=== PATIENT | female | born 1980 | race Caucasian/White ===

== ENCOUNTER 2022-07-19 14:15 | Emergency (ER) | payer MEDICAID, SELFPAY ==
[2022-07-19 14:21] VITALS: BP 119/80; PULSE 90; RESP 16; TEMP 36.6; O2SAT 97
[2022-07-19 15:23] VITALS: BP 106/72; PULSE 103; RESP 17; TEMP 36.6; O2SAT 95
[2022-07-19 16:07] VITALS: BP 112/73; PULSE 84; O2SAT 99
--- NOTE | 2022-07-19 16:13 | W.ED.GENADLT ---
HPI - General Adult General: Chief complaint: General Medical Stated complaint: addiction Time Seen by Provider: 07/19/22 16:13 History of Present Illness: This 41-year-old female with a history of fentanyl abuse, presents to the ER wanting to be admitted for 3 days for medical detox from fentanyl. Her last use was about 12 hours ago. She reports feeling hot and cold, having abdominal cramps in shivering. However, clinically, she looks calm and has normal heart rate, normal blood pressure and normal temperature. No tremors were observed and she is not diaphoretic. She had gone to [facility] and was told about a 12 to 24-hour wait. So she decided to come to our facility. Review of Systems General: Reports: 10 or more systems reviewed and unremarkable except in HPI and below Neuro: Reports: other (Tremors) Endo: Reports: other (Feeling hot and cold) Physical Exam Const: COMMON NORMALS: no acute distress, patient oriented x3, no limitations and alert HENMT: COMMON NORMALS: normocephalic HEAD & SCALP: normocephalic Neck/C-Spine: COMMON NORMALS: full ROM and supple Chest: COMMONS NORMALS: normal inspection of the chest Resp: COMMON NORMALS: normal respiratory effort, No retractions, No use of accessory muscles and clear to auscultation bilaterally AUSCULTATION: clear to auscultation bilaterally Cardio: COMMON NORMALS: regular rate, regular rhythm and No murmurs present (Cardio) RATE: regular rate RHYTHM: regular rhythm GI: COMMON NORMALS: Normal to inspection, nondistended, normoactive bowel sounds present and non-tender : COMMON NORMALS: Yes no CVA tenderness BLADDER/KIDNEY EXAM: Yes no CVA tenderness Back/Pelvis: COMMON NORMALS: no CVA tenderness and no thoracic nor lumbar tenderness Extremity: GENERAL: Yes normal exam except as noted Neuro: COMMON NORMALS: patient oriented x3 and no focal motor deficits SENSORIUM/ORIENTATION: Yes alert Psych: COMMON NORMALS: mental status grossly normal and cooperative Course Vital Signs: Vital signs: Vital Signs Temperature 97.8 F 07/19/22 15:23 Pulse Rate 96 07/19/22 17:19 Respiratory Rate 17 07/19/22 15:23 Blood Pressure 105/82 07/19/22 17:19 Pulse Oximetry 97 07/19/22 17:19 Oxygen Delivery Me thod 07/19/22 16:57 MDM - General Adult Medical Decision Making Medical decision making: History as above. Patient primarily came to the ER so that she will be admitted for 3 days prior to going to inpatient drug rehab. She tells me that she is scheduled for inpatient rehab at [facility] starting on 07/22 (in 3 days time). Though she reports feeling hot and cold, having tremors and having some abdominal cramping, she looks completely normal. Her vital signs are normal and she is in no distress. Unfortunately, this facility does not offer inpatient detox especially for a patient who is not in acute detox with delirium, altered sensorium, hemodynamic instability etc. With this, patient declined doing any labs. She just wants to go home. She says she will try one of the facilities in [place] to see if they will admit her. Discharge Plan Discharge Patient Disposition: Home Clinical Impression: Fentanyl use disorder, mild, abuse Condition: Stable Prescriptions: No Action No Known Home Medications Discharge Orders: Discharge ED (Routine); Ordered 07/19/22 Ordered By: Reji Grant Discharge Diet: Usual diet Discharge Activity: Resume usual activity Patient Instructions: Opioid Safety, Pain Management Activity Restrictions/Additional Instructions: Avoid use of recreational substances. Maintain adequate hydration. Check-in for inpatient treatment as already scheduled. Return with new or worsening symptoms. Coding Level of Care Code ED Rn Surgery for Pratik Woodruff
[2022-07-19 16:57] VITALS: BP 112/65; PULSE 75; O2SAT 94
[2022-07-19 17:19] VITALS: BP 105/82; PULSE 96; O2SAT 97
--- NOTE | 2022-07-22 13:12 | DCPLANNER ---
Addendum entered by Greer Omer 11/24/22 10:10: This appointment was rescheduled Addendum entered by Greer Omer 07/22/22 14:01: Patients mother called case therapist back, stating that patient would like help in getting established with a primary care physician. manager exchange called JOVANNA Dilcia Tariq, gave clinic patients information a follow up appointment was scheduled for Monday, December 05, [address]22 at [address] Roque. manager exchange gave patients mother the appointment information. Original Note: manager exchange called patient due to no primary care physician - no answer at this time
== END 2022-07-19 17:21 | disposition home or self-care (01) ==
PROVIDERS: Emergency Provider Family Medicine
DX: F11.10 Opioid abuse, uncomplicated (principal)
CPT/HCPCS: 99282